=== PATIENT | female | born 2000 | race Two or more races ===

== ENCOUNTER 2021-08-15 20:01 | Emergency (ER) | payer OTHER, MEDICAID ==
[~2021-08-15] VITALS: Ht 165.1 cm; Wt 72.6 kg
[2021-08-15] MEDS ORDERED: traMADol HCL 50 MG TAB PO ONE (21:00)
[2021-08-15 21:47] VITALS: BP 121/55
== END 2021-08-15 21:51 | disposition home or self-care (01) ==
LOC: EDBD 20:01 → ER 20:01
DX: S40.012A Contusion of left shoulder, initial encounter (principal); S80.02XA Contusion of left knee, initial encounter; S20.212A Contusion of left front wall of thorax, initial encounter; F12.10 Cannabis abuse, uncomplicated; V43.52XA Car driver injured in collision with other type car in traffic accident, initial encounter; Y93.89 Activity, other specified; Y92.410 Unspecified street and highway as the place of occurrence of the external cause; Y99.8 Other external cause status
CPT/HCPCS: 71045; 73030; 73562; 93005

== ENCOUNTER 2024-06-17 09:02 | Observation (INO) | payer MEDICAID ==
[~2024-06-17] VITALS: Ht 167.6 cm; Wt 74.8 kg
[2024-06-17] MEDS ORDERED: PREN-96 PO (10:20)
[2024-06-17] MEDS ORDERED: NIFEdipine 10 MG CAP PO ONE (11:00)
[2024-06-17 11:08] LABS: Urine Bacteria FEW /hpf (None Seen); Urine Blood Negative /uL (Negative); Urine Clarity Turbid (Clear); Urine Color Light-Yellow (Yellow); Urine Mucus FEW (None Seen); Urine Protein, UAD Negative (Negative); Urine Specific Gravity 1.017 (1.001-1.035); Urine Urobilinogen Normal (Negative); Urine WBC 8 /hpf (0 - 5)
[2024-06-17 11:10] LABS: Basophils # (auto) 0 10 ^3/uL (0-0.2); Basophils % (auto) 0.2 % (0.0-2.0); Eosinophils # (auto) 0 10 ^3/uL (0-0.8); Eosinophils % (auto) 0.2 % (0.0-7.0); Hematocrit 35.9 % (36.0-46.0); Hemoglobin 12.4 g/dL (12.2-16.2); Lymphocytes # (auto) 1.8 10 ^3/uL (0.4-5.4); Lymphocytes % (auto) 19.2 % (10.0-50.0); Mean Corpuscular Hemoglobin 32.9 pg (28.0-32.0); Mean Corpuscular Hgb Conc. 34.5 g/dL (32.0-36.0); Mean Corpuscular Volume 95.3 fL (80.0-100.0); Monocytes # (auto) 0.3 10 ^3/uL (0-1.3); Monocytes % (auto) 3.7 % (0.0-12.0); Neutrophils % (auto) 76.7 % (37.0-80.0); Red Blood Cells 3.76 10^6/uL (4.0-5.20); Red Cell Distribution Width 12.7 % (11.8-14.3); White Blood Cell 9.2 10^3/uL (4.4-10.8)
[2024-06-17 11:14] LABS: INR 0.96 (0.9-1.15); Partial Thromboplastin Time 26.3 SEC (24.5-34.5); Prothrombin Time 10.2 sec (9.3-11.8)
[2024-06-17 11:15] LABS: Protein, Urine 18.6 mg/dL (0.0-11.9)
[2024-06-17 11:15] LABS: Alanine Aminotransferase 10 U/L (7-40); Albumin 3.9 g/dL (3.2-4.8); Alkaline Phosphatase 77 U/L (46-116); Anion Gap 6 (5-15); Aspartate Aminotransferase 11 U/L (13-40); BUN/Creatinine Ratio 13.2 (10.0-20.0); Bilirubin, Total 0.4 mg/dL (0.2-1.0); Blood Urea Nitrogen 7 mg/dL (9-23); Calcium 9.1 mg/dL (8.7-10.4); Carbon Dioxide 25 mmol/L (20-30); Chloride 106 mmol/L (98-107); Glucose 84 mg/dL (74-106); Potassium 3.5 mmol/L (3.5-5.1); Sodium 137 mmol/L (136-145); Total Protein 6.6 g/dL (5.7-8.2); Uric Acid 3.5 mg/dL (3.1-7.8)
[2024-06-17 11:17] LABS: Amphetamine Screen, Urine Neg (NEGATIVE); Barbiturate Scree,Urine Neg (NEGATIVE); Benzodiazephine Screen, Urine Neg (NEGATIVE); Cocaine Screen, Urine Neg (NEGATIVE)
[2024-06-17 11:18] LABS: Cannabinoid Screen, Urine Pos (NEGATIVE); Creatinine, Urine 66.28 mg/dL (30.0-125.0); Opiate Scree,Urine Neg (NEGATIVE); Phencyclidine Screen, Urine Neg (NEGATIVE); Urine Protein/Creatinine Ratio 0.28
== END 2024-06-17 12:10 | disposition home or self-care (01) ==
LOC: LDRP 09:02 → UNDOADMOB 09:02 → LDRP 09:28
PROVIDERS: ADMIT Obstetrics & Gynecology; ATTEND Obstetrics & Gynecology
DX: O13.2 Gestational [pregnancy-induced] hypertension without significant proteinuria, second trimester (principal); Z3A.28 28 weeks gestation of pregnancy; Z88.0 Allergy status to penicillin; Z79.899 Other long term (current) drug therapy
CPT/HCPCS: 36415; 59025; 80053; 80307; 81001; 81002; 82570; 84156; 84550; 85025; 85610; 85730; 94760; G0378

== ENCOUNTER 2024-06-19 10:20 | Observation (INO) | payer MEDICAID ==
[~2024-06-19 10:20] MED LIST: PREN-96 PO
[2024-06-19 11:54] LABS: Protein, Urine 15.3 mg/dL (0.0-11.9)
== END 2024-06-19 12:24 | disposition home or self-care (01) ==
LOC: LDRP 10:20 → UNDOADMOB 10:20 → LDRP 10:38 → UNDODISOB 12:24
PROVIDERS: ADMIT Obstetrics & Gynecology; ATTEND Obstetrics & Gynecology
DX: O24.419 Gestational diabetes mellitus in pregnancy, unspecified control (principal); O10.913 Unspecified pre-existing hypertension complicating pregnancy, third trimester; Z3A.28 28 weeks gestation of pregnancy; Z88.0 Allergy status to penicillin
CPT/HCPCS: 59025; 81002; 82948; 84156; G0378

== ENCOUNTER 2024-07-02 10:15 | Observation (INO) | payer MEDICAID ==
[~2024-07-02] VITALS: Ht 167.6 cm; Wt 73.9 kg
[2024-07-02 12:02] LABS: Urine Bacteria FEW /hpf (None Seen); Urine Blood Negative /uL (Negative); Urine Clarity Turbid (Clear); Urine Color Yellow (Yellow); Urine Mucus FEW (None Seen); Urine Protein, UAD TRACE (Negative); Urine Specific Gravity 1.021 (1.001-1.035); Urine Urobilinogen Normal (Negative); Urine WBC 19 /hpf (0 - 5); Urine pH 6.5 (5.0-9.0)
[2024-07-02 12:06] LABS: Basophils # (auto) 0 10 ^3/uL (0-0.2); Basophils % (auto) 0.2 % (0.0-2.0); Eosinophils # (auto) 0 10 ^3/uL (0-0.8); Eosinophils % (auto) 0.2 % (0.0-7.0); Hematocrit 37.2 % (36.0-46.0); Hemoglobin 12.6 g/dL (12.2-16.2); Lymphocytes # (auto) 1.3 10 ^3/uL (0.4-5.4); Lymphocytes % (auto) 17.3 % (10.0-50.0); Mean Corpuscular Hemoglobin 32.3 pg (28.0-32.0); Mean Corpuscular Hgb Conc. 33.8 g/dL (32.0-36.0); Mean Corpuscular Volume 95.8 fL (80.0-100.0); Monocytes # (auto) 0.3 10 ^3/uL (0-1.3); Monocytes % (auto) 4.3 % (0.0-12.0); Nucleated Red Blood Cells % 0.1 %; Red Blood Cells 3.89 10^6/uL (4.0-5.20); Red Cell Distribution Width 13.1 % (11.8-14.3); White Blood Cell 7.7 10^3/uL (4.4-10.8)
[2024-07-02 12:13] LABS: Creatinine, Urine 175.99 mg/dL (30.0-125.0); Urine Protein/Creatinine Ratio 0.21
[2024-07-02 12:21] LABS: Alanine Aminotransferase 12 U/L (7-40); Albumin 3.7 g/dL (3.2-4.8); Alkaline Phosphatase 97 U/L (46-116); Anion Gap 4 (5-15); Aspartate Aminotransferase 11 U/L (13-40); BUN/Creatinine Ratio 16.7 (10.0-20.0); Bilirubin, Total 0.3 mg/dL (0.2-1.0); Blood Urea Nitrogen 11 mg/dL (9-23); Carbon Dioxide 25 mmol/L (20-30); Chloride 106 mmol/L (98-107); Glucose 79 mg/dL (74-106); Potassium 3.9 mmol/L (3.5-5.1); Sodium 135 mmol/L (136-145); Total Protein 6.5 g/dL (5.7-8.2); Uric Acid 4.2 mg/dL (3.1-7.8)
[2024-07-02 12:23] LABS: INR 0.93 (0.9-1.15); Partial Thromboplastin Time 25.6 SEC (24.5-34.5); Prothrombin Time 9.9 sec (9.3-11.8)
[2024-07-02] MEDS: NIFEdipine ER 30 MG TAB PO ONE (13:10)
== END 2024-07-02 14:55 | disposition home or self-care (01) ==
LOC: LDRP 10:15 → UNDOADMOB 10:15 → LDRP 10:50
PROVIDERS: ADMIT Obstetrics & Gynecology; ATTEND Obstetrics & Gynecology
DX: O13.3 Gestational [pregnancy-induced] hypertension without significant proteinuria, third trimester (principal); Z3A.30 30 weeks gestation of pregnancy; Z88.0 Allergy status to penicillin
CPT/HCPCS: 36415; 59025; 76818; 80053; 81001; 81002; 82570; 84156; 84550; 85025; 85610; 85730; 94760; G0378

== ENCOUNTER 2024-07-04 10:37 | Observation (INO) | payer MEDICAID ==
[2024-07-04 15:16] LABS: Urine Bacteria None Seen /hpf (None Seen)
[2024-07-04 15:43] LABS: Urine Blood Negative /uL (Negative); Urine Clarity Clear (Clear); Urine Color Light-Yellow (Yellow); Urine Protein, UAD TRACE (Negative); Urine Urobilinogen Normal (Negative); Urine WBC 5 /hpf (0 - 5)
[2024-07-04 16:07] LABS: Protein, Urine 24.2 mg/dL (0.0-11.9)
[2024-07-04 16:09] LABS: Creatinine, Urine 73.58 mg/dL (30.0-125.0); Urine Protein/Creatinine Ratio 0.33
[2024-07-04 16:18] LABS: Protein, Urine 24.2 mg/dL (0.0-11.9)
[2024-07-04 16:19] LABS: 24 Hr. Total Protein, Urine 169.4 mg/24 Hr (<149.1)
[2024-07-04] MEDS ORDERED: NIF10C PO (16:38)
== END 2024-07-04 16:46 | disposition home or self-care (01) ==
LOC: LDRP 14:30
PROVIDERS: ADMIT Obstetrics & Gynecology; ATTEND Obstetrics & Gynecology
DX: O13.3 Gestational [pregnancy-induced] hypertension without significant proteinuria, third trimester (principal); Z3A.30 30 weeks gestation of pregnancy; Z88.0 Allergy status to penicillin
CPT/HCPCS: 59025; 81001; 81002; 82570; 84156; 94760; G0378

== ENCOUNTER 2024-07-06 00:05 | Observation (INO) | payer MEDICAID ==
[~2024-07-06] VITALS: Ht 167.6 cm; Wt 81.6 kg
[~2024-07-06 00:05] MED LIST changes: +NIFE10CA52 PO
[2024-07-06] MEDS: ONDANSETRON HCL 4 MG/2 ML VIAL IV ONE (00:44)
[2024-07-06] MEDS: LACTATED RINGER'S 1,000 ML IV ONE (00:47)
[2024-07-06] MEDS: MAGNESIUM SULFATE 40MG/ML 1,000 ML IV ONE (01:13)
[2024-07-06] MEDS: MAGNESIUM SULFATE 100 ML IV ONE ×2 (01:13→02:04)
[2024-07-06 01:49] LABS: Urine Bacteria None Seen /hpf (None Seen)
[2024-07-06 02:03] LABS: Urine Blood 1+ /uL (Negative); Urine Clarity Clear (Clear); Urine Color Light-Yellow (Yellow); Urine Mucus FEW (None Seen); Urine Protein, UAD Negative (Negative); Urine Specific Gravity 1.019 (1.001-1.035); Urine Urobilinogen Normal (Negative); Urine WBC 2 /hpf (0 - 5)
[2024-07-06 02:07] LABS: INR 0.91 (0.9-1.15); Partial Thromboplastin Time 24.4 SEC (24.5-34.5); Prothrombin Time 9.7 sec (9.3-11.8)
[2024-07-06] MEDS: MAGNESIUM SULFATE 40MG/ML 1,000 ML IV SCH (02:07)
[2024-07-06] MEDS: hydrALAZINE HCL 20 MG/ML VL IV PRN (02:08)
[2024-07-06 02:10] LABS: Alanine Aminotransferase 16 U/L (7-40); Albumin 3.7 g/dL (3.2-4.8); Alkaline Phosphatase 102 U/L (46-116); Anion Gap 10 (5-15); Aspartate Aminotransferase 15 U/L (13-40); BUN/Creatinine Ratio 18.9 (10.0-20.0); Blood Urea Nitrogen 14 mg/dL (9-23); Calcium 9.1 mg/dL (8.7-10.4); Carbon Dioxide 20 mmol/L (20-30); Chloride 107 mmol/L (98-107); Glucose 99 mg/dL (74-106); Potassium 3.9 mmol/L (3.5-5.1); Sodium 137 mmol/L (136-145); Uric Acid 4.7 mg/dL (3.1-7.8)
[2024-07-06 02:11] LABS: Bilirubin, Total 0.3 mg/dL (0.2-1.0); Total Protein 6.3 g/dL (5.7-8.2)
[2024-07-06] MEDS: BETAMETHASONE ACET (30mg/5ml) 5ml Vial 6mg/ml IM ONE (02:12)
[2024-07-06 02:13] LABS: Protein, Urine 20.8 mg/dL (0.0-11.9)
[2024-07-06 02:15] LABS: Amphetamine Screen, Urine Neg (NEGATIVE); Barbiturate Scree,Urine Neg (NEGATIVE); Benzodiazephine Screen, Urine Neg (NEGATIVE); Cannabinoid Screen, Urine Pos (NEGATIVE); Cocaine Screen, Urine Neg (NEGATIVE); Creatinine, Urine 95.86 mg/dL (30.0-125.0); Opiate Scree,Urine Neg (NEGATIVE); Phencyclidine Screen, Urine Neg (NEGATIVE); Urine Protein/Creatinine Ratio 0.22
[2024-07-06 02:46] LABS: Magnesium 4.3 mg/dL (1.6-2.6)
[2024-07-06 02:58] LABS: Fern Testing Negative
[2024-07-06 03:00] LABS: Basophils # (auto) 0 10 ^3/uL (0-0.2); Basophils % (auto) 0.1 % (0.0-2.0); Eosinophils # (auto) 0 10 ^3/uL (0-0.8); Hematocrit 35.5 % (36.0-46.0); Lymphocytes # (auto) 1.2 10 ^3/uL (0.4-5.4); Lymphocytes % (auto) 6.9 % (10.0-50.0); Mean Corpuscular Hemoglobin 31.9 pg (28.0-32.0); Mean Corpuscular Hgb Conc. 33.7 g/dL (32.0-36.0); Mean Corpuscular Volume 94.8 fL (80.0-100.0); Monocytes # (auto) 0.5 10 ^3/uL (0-1.3); Monocytes % (auto) 3.1 % (0.0-12.0); Neutrophils # (auto) 15.9 10 ^3/uL (1.6-8.6); Neutrophils % (auto) 89.9 % (37.0-80.0); Platelet Count (auto) 227 10^3/uL (140-450); Red Blood Cells 3.75 10^6/uL (4.0-5.20); Red Cell Distribution Width 12.5 % (11.8-14.3); White Blood Cell 17.6 10^3/uL (4.4-10.8)
[2024-07-06 04:22] LABS: COVID19 ANTIGEN SOFIA FIA NEGATIVE (NEGATIVE)
[2024-07-06] MEDS: LACTATED RINGER'S 1,000 ML IV SCH (05:30)
== END 2024-07-06 09:08 | disposition home or self-care (01) ==
LOC: LDRP 00:05
PROVIDERS: ADMIT Obstetrics & Gynecology; ATTEND Obstetrics & Gynecology
DX: O21.2 Late vomiting of pregnancy (principal); O60.03 Preterm labor without delivery, third trimester; O13.3 Gestational [pregnancy-induced] hypertension without significant proteinuria, third trimester; Z3A.30 30 weeks gestation of pregnancy; Z79.899 Other long term (current) drug therapy; Z98.890 Other specified postprocedural states; Z20.822 Contact with and (suspected) exposure to COVID-19
CPT/HCPCS: 36415; 59025; 76705; 76805; 80053; 80307; 81001; 81002; 82570; 83735; 84112; 84156; 84550; 85025; 85610; 85730; 87426; 94762; 96361; 96365; 96366; 96372; 96375; G0378; J0702; J2405; J3475; Q0114; 96360; 96374

== ENCOUNTER 2024-07-06 22:03 | Observation (INO) | payer MEDICAID ==
[~2024-07-06] VITALS: Ht 167.6 cm; Wt 81.6 kg
[~2024-07-06 22:03] MED LIST changes: +NIF10C PO; -NIFE10CA52 PO
[2024-07-06] MEDS: BETAMETHASONE ACET (30mg/5ml) 5ml Vial 6mg/ml IM ONE (22:34)
== END 2024-07-06 23:30 | disposition home or self-care (01) ==
LOC: LDRP 22:03
PROVIDERS: ADMIT Obstetrics & Gynecology; ATTEND Obstetrics & Gynecology
DX: O13.3 Gestational [pregnancy-induced] hypertension without significant proteinuria, third trimester (principal); Z3A.30 30 weeks gestation of pregnancy; Z88.0 Allergy status to penicillin; Z87.891 Personal history of nicotine dependence
CPT/HCPCS: 59025; 81002; 94760; 96372; G0378; J0702

== ENCOUNTER 2024-07-08 14:40 | Observation (INO) | payer MEDICAID ==
[~2024-07-08] VITALS: Ht 167.6 cm; Wt 81.6 kg
[2024-07-08] MEDS: NIFEdipine 10 MG CAP PO ONE (16:17)
[2024-07-08] MEDS ORDERED: hydrALAZINE HCL 20 MG/ML VL IV PRN (17:45)
== END 2024-07-08 18:31 | disposition home or self-care (01) ==
LOC: LDRP 14:40
PROVIDERS: ADMIT Obstetrics & Gynecology; ATTEND Obstetrics & Gynecology
DX: O60.03 Preterm labor without delivery, third trimester (principal); O26.893 Other specified pregnancy related conditions, third trimester; R51.9 Headache, unspecified; O99.343 Other mental disorders complicating pregnancy, third trimester; F41.9 Anxiety disorder, unspecified; Z3A.31 31 weeks gestation of pregnancy
CPT/HCPCS: 59025; 81002; 94760; G0378

== ENCOUNTER 2024-07-11 09:23 | Observation (INO) | payer MEDICAID ==
[~2024-07-11] VITALS: Ht 165.1 cm; Wt 93.9 kg
== END 2024-07-11 10:26 | disposition home or self-care (01) ==
LOC: LDRP 09:23
PROVIDERS: ADMIT Obstetrics & Gynecology; ATTEND Obstetrics & Gynecology
DX: O13.3 Gestational [pregnancy-induced] hypertension without significant proteinuria, third trimester (principal); Z3A.31 31 weeks gestation of pregnancy; Z88.0 Allergy status to penicillin; Z87.891 Personal history of nicotine dependence
CPT/HCPCS: 59025; 81002; 94760; G0378

== ENCOUNTER 2024-07-15 12:30 | Observation (INO) | payer MEDICAID ==
[~2024-07-15] VITALS: Ht 30.5 cm; Wt 0.5 kg
[~2024-07-15 12:30] MED LIST changes: -NIF10C PO; +NIFE10CA52 PO
[2024-07-15 14:28] LABS: Basophils # (auto) 0 10 ^3/uL (0-0.2); Basophils % (auto) 0.4 % (0.0-2.0); Eosinophils # (auto) 0 10 ^3/uL (0-0.8); Eosinophils % (auto) 0.4 % (0.0-7.0); Hematocrit 34.7 % (36.0-46.0); Hemoglobin 11.7 g/dL (12.2-16.2); Lymphocytes # (auto) 2.1 10 ^3/uL (0.4-5.4); Lymphocytes % (auto) 22.3 % (10.0-50.0); Mean Corpuscular Hemoglobin 32.1 pg (28.0-32.0); Mean Corpuscular Hgb Conc. 33.6 g/dL (32.0-36.0); Mean Corpuscular Volume 95.4 fL (80.0-100.0); Monocytes # (auto) 0.6 10 ^3/uL (0-1.3); Neutrophils # (auto) 6.6 10 ^3/uL (1.6-8.6); Neutrophils % (auto) 70.9 % (37.0-80.0); Red Blood Cells 3.64 10^6/uL (4.0-5.20); Red Cell Distribution Width 12.7 % (11.8-14.3); White Blood Cell 9.3 10^3/uL (4.4-10.8)
[2024-07-15] MEDS: hydrALAZINE HCL 20 MG/ML VL IV PRN (14:42)
[2024-07-15 14:45] LABS: INR 0.93 (0.9-1.15); Partial Thromboplastin Time 26.1 SEC (24.5-34.5); Prothrombin Time 9.9 sec (9.3-11.8)
[2024-07-15 14:49] LABS: Alanine Aminotransferase 11 U/L (7-40); Albumin 3.6 g/dL (3.2-4.8); Alkaline Phosphatase 97 U/L (46-116); Anion Gap 7 (5-15); Aspartate Aminotransferase 11 U/L (13-40); Blood Urea Nitrogen 12 mg/dL (9-23); Calcium 8.8 mg/dL (8.7-10.4); Carbon Dioxide 24 mmol/L (20-30); Chloride 106 mmol/L (98-107); Glucose 93 mg/dL (74-106); Potassium 3.9 mmol/L (3.5-5.1); Sodium 137 mmol/L (136-145); Uric Acid 4.9 mg/dL (3.1-7.8)
[2024-07-15 14:50] LABS: Bilirubin, Total 0.2 mg/dL (0.2-1.0); Total Protein 6.2 g/dL (5.7-8.2)
[2024-07-15] MEDS: NIFEdipine ER 30 MG TAB PO ONE (14:55)
[2024-07-15 15:09] LABS: Urine Bacteria FEW /hpf (None Seen); Urine Blood Negative /uL (Negative); Urine Clarity Turbid (Clear); Urine Color Light-Yellow (Yellow); Urine Protein, UAD TRACE (Negative); Urine Specific Gravity 1.021 (1.001-1.035); Urine Urobilinogen Normal (Negative); Urine WBC 5 /hpf (0 - 5)
[2024-07-15 15:12] LABS: Protein, Urine 23.2 mg/dL (0.0-11.9)
[2024-07-15 15:15] LABS: Creatinine, Urine 100.37 mg/dL (30.0-125.0); Urine Protein/Creatinine Ratio 0.23
[2024-07-15] MEDS ORDERED: ALPRAZolam 0.5 MG TAB PO ONE (17:00)
[2024-07-15 17:07] LABS: Amphetamine Screen, Urine Neg (NEGATIVE); Barbiturate Scree,Urine Neg (NEGATIVE); Benzodiazephine Screen, Urine Neg (NEGATIVE); Cannabinoid Screen, Urine Pos (NEGATIVE); Cocaine Screen, Urine Neg (NEGATIVE); Opiate Scree,Urine Neg (NEGATIVE); Phencyclidine Screen, Urine Neg (NEGATIVE)
== END 2024-07-15 18:10 | disposition left against medical advice (07) ==
LOC: LDRP 12:30 → UNDOADMOB 12:30 → LDRP 13:05
PROVIDERS: ADMIT Obstetrics & Gynecology; ATTEND Obstetrics & Gynecology
DX: O13.3 Gestational [pregnancy-induced] hypertension without significant proteinuria, third trimester (principal); O26.893 Other specified pregnancy related conditions, third trimester; R51.9 Headache, unspecified; Z3A.32 32 weeks gestation of pregnancy; Z79.899 Other long term (current) drug therapy
CPT/HCPCS: 36415; 59025; 76805; 76818; 80053; 80307; 81001; 81002; 82570; 84156; 84550; 85025; 85610; 85730; 94760; 96374; 96376; G0378; J0360; 96375

== ENCOUNTER 2024-07-18 12:00 | Inpatient (IN) | payer MEDICAID ==
[~2024-07-18] VITALS: Ht 162.6 cm; Wt 77.1 kg
[2024-07-18 13:28] LABS: Basophils # (auto) 0 10 ^3/uL (0-0.2); Basophils % (auto) 0.4 % (0.0-2.0); Eosinophils # (auto) 0 10 ^3/uL (0-0.8); Eosinophils % (auto) 0.2 % (0.0-7.0); Hematocrit 34.9 % (36.0-46.0); Hemoglobin 11.9 g/dL (12.2-16.2); Lymphocytes # (auto) 1.9 10 ^3/uL (0.4-5.4); Lymphocytes % (auto) 19.9 % (10.0-50.0); Mean Corpuscular Hemoglobin 32.9 pg (28.0-32.0); Mean Corpuscular Hgb Conc. 34.2 g/dL (32.0-36.0); Mean Corpuscular Volume 96.4 fL (80.0-100.0); Monocytes # (auto) 0.4 10 ^3/uL (0-1.3); Monocytes % (auto) 4.3 % (0.0-12.0); Neutrophils % (auto) 75.2 % (37.0-80.0); Platelet Count (auto) 217 10^3/uL (140-450); Red Blood Cells 3.62 10^6/uL (4.0-5.20); Red Cell Distribution Width 12.9 % (11.8-14.3); White Blood Cell 9.3 10^3/uL (4.4-10.8)
[2024-07-18] MEDS: hydrALAZINE HCL 20 MG/ML VL IV PRN (13:30)
[2024-07-18 13:34] LABS: Urine Bacteria FEW /hpf (None Seen); Urine Blood Negative /uL (Negative); Urine Clarity Turbid (Clear); Urine Color Light-Yellow (Yellow); Urine Hyaline Cast FEW /lpf (0 - 2); Urine Protein, UAD Negative (Negative); Urine Specific Gravity 1.008 (1.001-1.035); Urine Urobilinogen Normal (Negative); Urine WBC 9 /hpf (0 - 5); Urine pH 6.5 (5.0-9.0)
[2024-07-18 13:42] LABS: Protein, Urine 10.8 mg/dL (0.0-11.9)
[2024-07-18 13:43] LABS: INR 0.91 (0.9-1.15); Partial Thromboplastin Time 25.4 SEC (24.5-34.5); Prothrombin Time 9.7 sec (9.3-11.8)
[2024-07-18 13:45] LABS: Amphetamine Screen, Urine Neg (NEGATIVE); Barbiturate Scree,Urine Neg (NEGATIVE); Benzodiazephine Screen, Urine Neg (NEGATIVE); Cannabinoid Screen, Urine Pos (NEGATIVE); Cocaine Screen, Urine Neg (NEGATIVE); Creatinine, Urine 39.02 mg/dL (30.0-125.0); Opiate Scree,Urine Neg (NEGATIVE); Phencyclidine Screen, Urine Neg (NEGATIVE); Urine Protein/Creatinine Ratio 0.28
[2024-07-18 13:48] LABS: Alanine Aminotransferase 10 U/L (7-40); Alkaline Phosphatase 109 U/L (46-116); Anion Gap 6 (5-15); Aspartate Aminotransferase 12 U/L (13-40); BUN/Creatinine Ratio 20.4 (10.0-20.0); Bilirubin, Total 0.2 mg/dL (0.2-1.0); Blood Urea Nitrogen 11 mg/dL (9-23); Carbon Dioxide 23 mmol/L (20-30); Chloride 106 mmol/L (98-107); Glucose 80 mg/dL (74-106); Potassium 4.2 mmol/L (3.5-5.1); Sodium 135 mmol/L (136-145); Total Protein 6.7 g/dL (5.7-8.2)
[2024-07-18] MEDS ORDERED: LORazepam 2MG/ML-1ML VIAL IV ONE (14:00)
[2024-07-18] MEDS: LACTATED RINGER'S 1,000 ML IV SCH (14:23)
[2024-07-18] MEDS: MAGNESIUM SULFATE 100 ML IV ONE (14:29)
[2024-07-18] MEDS: MAGNESIUM SULFATE 40MG/ML 1,000 ML IV SCH (14:45)
== END 2024-07-18 15:35 | disposition short-term general hospital (02) | DRG 566 ==
LOC: LDRP 12:00 → OBSVTOIN 13:56
PROVIDERS: ADMIT Obstetrics & Gynecology; ATTEND Obstetrics & Gynecology
DX: O10.913 Unspecified pre-existing hypertension complicating pregnancy, third trimester (principal); O99.323 Drug use complicating pregnancy, third trimester; F19.90 Other psychoactive substance use, unspecified, uncomplicated; Z91.199 Patient's noncompliance with other medical treatment and regimen due to unspecified reason; Z3A.32 32 weeks gestation of pregnancy; Z91.148 Patient's other noncompliance with medication regimen for other reason
CPT/HCPCS: 36415; 59025; 76818; 80053; 80307; 81001; 81002; 82570; 83735; 84156; 84550; 85025; 85610; 85730; 94760; 96360; 96361; 96365; 96366; 96374; G0378

== ENCOUNTER 2024-09-03 23:58 | Emergency (ER) | payer MEDICAID ==
[~2024-09-03] VITALS: Ht 167.6 cm; Wt 76.0 kg
[2024-09-04 00:07] VITALS: BP 116/86; PULSE 93; RESP 20; O2SAT 97
[2024-09-04 00:30] LABS: Urine Bacteria None Seen /hpf (None Seen)
[2024-09-04 00:33] LABS: Basophils # (auto) 0 10 ^3/uL (0-0.2); Basophils % (auto) 0.6 % (0.0-2.0); Eosinophils # (auto) 0.1 10 ^3/uL (0-0.8); Eosinophils % (auto) 1.5 % (0.0-7.0); Hematocrit 33.6 % (36.0-46.0); Hemoglobin 11.6 g/dL (12.2-16.2); Lymphocytes # (auto) 2.5 10 ^3/uL (0.4-5.4); Lymphocytes % (auto) 28.1 % (10.0-50.0); Mean Corpuscular Hemoglobin 32.9 pg (28.0-32.0); Mean Corpuscular Hgb Conc. 34.5 g/dL (32.0-36.0); Mean Corpuscular Volume 95.4 fL (80.0-100.0); Monocytes # (auto) 0.5 10 ^3/uL (0-1.3); Monocytes % (auto) 5.8 % (0.0-12.0); Neutrophils # (auto) 5.6 10 ^3/uL (1.6-8.6); Platelet Count (auto) 280 10^3/uL (140-450); Red Blood Cells 3.52 10^6/uL (4.0-5.20); Red Cell Distribution Width 12.6 % (11.8-14.3); White Blood Cell 8.7 10^3/uL (4.4-10.8)
[2024-09-04 00:43] LABS: Chloride 109 mmol/L (98-107); Potassium 3.9 mmol/L (3.5-5.1); Sodium 141 mmol/L (136-145)
[2024-09-04 00:44] LABS: Anion Gap 7 (5-15); Carbon Dioxide 25 mmol/L (20-31)
[2024-09-04 00:45] LABS: Calcium 9.6 mg/dL (8.7-10.4)
[2024-09-04 00:49] LABS: Blood Urea Nitrogen 24 mg/dL (9-23); Glucose 100 mg/dL (74-106)
[2024-09-04 00:50] LABS: INR 0.99 (0.9-1.15); Partial Thromboplastin Time 26.8 SEC (24.5-34.5); Prothrombin Time 10.5 sec (9.3-11.8)
[2024-09-04 01:06] LABS: Urine Blood 3+ /uL (Negative); Urine Clarity Clear (Clear); Urine Color Yellow (Yellow); Urine Mucus FEW (None Seen); Urine Protein, UAD TRACE (Negative); Urine Specific Gravity 1.033 (1.001-1.035); Urine Urobilinogen Normal (Negative); Urine WBC 7 /hpf (0 - 5)
== END 2024-09-04 02:45 | disposition home or self-care (01) ==
LOC: ER 09-04 00:01
DX: O20.8 Other hemorrhage in early pregnancy (principal); R10.2 Pelvic and perineal pain; F12.10 Cannabis abuse, uncomplicated; I10 Essential (primary) hypertension; Z88.0 Allergy status to penicillin; Z3A.01 Less than 8 weeks gestation of pregnancy
CPT/HCPCS: 36415; 76856; 80048; 81001; 84702; 85025; 85610; 85730

== ENCOUNTER 2025-05-29 18:36 | Emergency (ER) | payer MEDICAID ==
[~2025-05-29] VITALS: Ht 165.1 cm; Wt 81.0 kg
[2025-05-29 18:49] VITALS: BP 118/80; PULSE 117; RESP 18; TEMP 98.3; O2SAT 100
--- NOTE | 2025-05-29 18:56 | ED.PDOC ---
History of Present Illness HPI Comments 24-year-old female brought in by EMS from home with alcohol intoxication. Reports the patient has been drinking alcohol all day. Patient states she drank Tequila, but will not comment on how much she drank. Patient states family members became concerned that her blood pressure was high, so called EMS. Patient states she initially did not want hospital evaluation, so was involved in a slight altercation, stating family members were trying to restrain her. Patient eventually conceded to transport. Patient denies being suicidal or homicidal. Denies any auditory or visual hallucinations. Blood pressure on scene was 175/116 mmHg. Patient states she has a history of preeclampsia, and has had high blood pressure ever since giving . She states she is not on any blood pressure medications. 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 Allergies: Coded Allergies: Penicillins (Verified Allergy, Unknown, 08/15/21) Home Meds Reported Medications Nifedipine (PROCARDIA CAPSULE) 10 Mg Cp, 30 MG PO DAILY, CAP 07/04/24 Vit W/ Ferrous Fumara ( One Daily) Daily Tab, 1 TAB PO DAILY, #90 TAB 3 Refills 06/17/24 Information Source: Patient, Emergency Med Personnel Mode of Arrival: EMS Severity: Moderate Timing: Hours Duration: Since onset Past Medical History PAST MEDICAL HISTORY: HTN Surgical History: [employer] History: Other (Preeclampsia) Family History Family History: Family hx of Cancer, Family hx of Kidney geri Social History Smoker: Other (Vape) Alcohol: Occasionally Drugs: Marijuana Lives In: Home Constitutional: denies: chills, diaphoresis, fatigue, fever, malaise, sweats, weakness, others EENTM: denies: blurred vision, double vision, ear bleeding, ear discharge, ear drainage, ear pain, ear ringing, eye pain, eye redness, hearing loss, mouth pain, mouth swelling, nasal discharge, nose bleeding, nose congestion, nose pain, photophobia, tearing, throat pain, throat swelling, voice changes, others Respiratory: denies: cough, hemoptysis, orthopnea, SOB at rest, shortness of breath, SOB with excertion, stridor, wheezing, others Cardiovascular: denies: chest pain, dizzy spells, diaphoresis, Dyspnea on exertion, edema, irregular heart beat, left arm pain, lightheadedness, palpitations, PND, syncope, others Gastrointestinal: denies: abdomen distended, abdominal pain, blood streaked bowels, constipated, diarrhea, dysphagia, difficulty swallowing, hematemesis, melena, nausea, poor appetite, poor fluid intake, rectal bleeding, rectal pain, vomiting, others Genitourinary: denies: abnormal vagina bleeding, burning, dyspareunia, dysuria, flank pain, frequency, hematuria, incontinence, pain, , vagina discharge, urgency, others Neurological: denies: dizziness, fainting, headache, left sided numbness, left sided weakness, numbness, paresthesia, pre-existing deficit, right sided numbness, right sided weakness, seizure, speech problems, tingling, tremors, weakness, others Musculoskeletal: denies: back pain, gout, joint pain, joint swelling, muscle pain, muscle stiffness, neck pain, others Integumetry: denies: bruises, change in color, change in hair/nails, dryness, laceration, lesions, lumps, rash, wounds, others Allergic/Immunocompromised: denies: Difficulty Healing, Frequent Infections, Hives, Itching, others Hematologic/Lymphatic: denies: anemia, blood clots, easy bleeding, easy bruising, swollen glands, others Endocrine: denies: excessive hunger, excessive sweating, excessive thirst, excessive urination, flushing, intolerance to cold, intolerance to heat, unexplained weight gain, unexplained weight loss, others Psychiatric: reports: others (alcohol intoxication); denies: anxiety, bipolar disorder, depression, hopeless, panic disorder, schizophrenia, sleepless, suicidal Physical Exam General Appearance: No Apparent Distress HEENT: Other (Pupils and face symmetric. Moist mucous membranes.) Neck: Full Range of Motion, Normal Inspection Respiratory: Lungs Clear, No Accessory Muscle Use, No Respiratory Distress, Normal Breath Sounds Cardiovascular: No Edema, No JVD, Tachycardia Breast Exam: Deferred Gastrointestinal: Non Tender, Soft Genitalia: Deferred Pelvic: Deferred Rectal: Deferred Extremities: Normal inspection, Normal range of motion, Non-tender, No pedal edema Neurologic: Alert (Oriented x4), Normal Affect, Normal Mood, Other (Ambulatory) Cerebellar Function: NOT DONE Reflexes: NOT DONE Skin: Dry, Normal Color, Warm, Other (Superficial excoriations anterior neck) Lymphatic: NOT DONE Was a procedure done? Was a procedure done?: No Differential Dx Considerations may include: alcohol intoxication, drug intoxication, anxiety, depression, hypertension, among others X-Ray, Labs, Meds, VS Vital Signs Date Time Temp Pulse Resp B/P (MAP) Pulse Ox O2 Delivery O2 Flow Rate FiO2 05/29/25 19:30 Room Air* 0 21 05/29/25 18:49 98.3 117 18 118/80 (93) 100 98.3 Lab Test 05/29/25 19:10 05/29/25 18:50 Range/Units White Blood Count 8.5 4.4-10.8 10^3/uL Red Blood Count 4.74 4.0-5.20 10^6/uL Hemoglobin 14.8 12.2-16.2 g/dL Hematocrit 43.7 36.0-46.0 % Mean Corpuscular Volume 92.3 80.0-100.0 fL Mean Corpuscular Hemoglobin 31.3 28.0-32.0 pg Mean Corpuscular Hemoglobin Concent 33.9 32.0-36.0 g/dL Red Cell Distribution Width 13.7 11.8-14.3 % Platelet Count 304 140-450 10^3/uL Mean Platelet Volume 9.5 6.9-10.8 fL Neutrophils (%) (Auto) 71.6 37.0-80.0 % Lymphocytes (%) (Auto) 23.0 10.0-50.0 % Monocytes (%) (Auto) 4.4 0.0-12.0 % Eosinophils (%) (Auto) 0.6 0.0-7.0 % Basophils (%) (Auto) 0.4 0.0-2.0 % Neutrophils # (Auto) 6.1 1.6-8.6 10 ^3/uL Lymphocytes # (Auto) 2.0 0.4-5.4 10 ^3/uL Monocytes # (Auto) 0.4 0-1.3 10 ^3/uL Eosinophils # (Auto) 0 0-0.8 10 ^3/uL Basophils # (Auto) 0 0-0.2 10 ^3/uL Nucleated Red Blood Cells 0.0 % Sodium Level 144 136-145 mmol/L Potassium Level 3.6 3.5-5.1 mmol/L Chloride Level 110 H 98-107 mmol/L Carbon Dioxide Level 19 L 20-31 mmol/L Anion Gap 15 5-15 Blood Urea Nitrogen 14 9-23 mg/dL Creatinine 0.77 0.550-1.02 mg/dL Glomerular Filtration Rate Calc 109 >90 mL/min BUN/Creatinine Ratio 18.2 10.0-20.0 Serum Glucose 102 74-106 mg/dL Calcium Level 10.3 8.7-10.4 mg/dL Plasma/Serum Blood Alcohol 268.7 H <10 mg/dL Urine Color Light-yellow Yellow Urine Clarity Clear Clear Urine pH 5.5 5.0-9.0 Urine Specific [place] 1.004 1.001-1.035 Urine Protein Negative Negative Urine Ketones Negative Negative Urine Blood Negative Negative /uL Urine Nitrite Negative Negative Urine Bilirubin Negative Negative Urine Urobilinogen Normal Negative mg/dL Urine Leukocyte Esterase Negative Negative /uL Urine RBC <1 0 - 4 /hpf Urine Microscopic WBC 1 0-5 /HPF Urine Squamous Epithelial Cells Few <5 /hpf Urine Bacteria Few H None Seen /hpf Urine Glucose Normal Normal mg/dL Urine Opiates Screen Neg NEGATIVE Urine Fentanyl Screen Neg NEGATIVE Urine Barbiturates Screen Neg NEGATIVE Urine Phencyclidine Screen Neg NEGATIVE Urine Amphetamines Screen Neg NEGATIVE Urine Benzodiazepines Screen Neg NEGATIVE Urine Cocaine Screen Neg NEGATIVE Urine Cannabinoids Screen Pos NEGATIVE Current Medications Medications (Trade) Dose Ordered Sig/Tyrel Route Start Time Stop Time Status Last Admin Sodium Chloride 1,000 ml @ 1,000 mls/hr Q1H ONCE IV 05/29/25 19:00 05/29/25 19:59 DC 05/29/25 19:05 X-Ray, Labs, Meds, VS Comment 24-year-old female with a history of preeclampsia and hypertension brought in by EMS from home with alcohol intoxication Vitals remarkable for heart rate 117 Exam remarkable for tachycardia Rhythm strip independently interpreted by me: Sinus tach, rate 117, no ectopy. CBC, basic metabolic panel, urine drug screen, UA and urine tests unremarkable. Serum alcohol 268.7 Patient treated with the following in the ED: 1 L 0.9 normal saline IV bolus On re-evaluation, patient is resting comfortably with stable vitals. Patient appears stable for discharge pending sobriety. Significant other arrived to pick her up, so patient was set for discharge. Apparently patient had an argument with her significant other and told him to leave. Patient then ripped out her IV and left the ED. Time of 1ST Reevaluation: 18:46 Reevaluation 1ST: Unchanged Patient Education/Counseling: Diagnosis, Treatment Family Education/Counseling: No Family Present SEPSIS Sepsis Screen Physician Orders Urine (05/29/25 ) Vital Signs Date Time Temp Pulse Resp B/P (MAP) Pulse Ox O2 Delivery O2 Flow Rate FiO2 05/29/25 19:30 Room Air* 0 21 05/29/25 18:49 98.3 117 18 118/80 (93) 100 98.3 Laboratory Tests Test 05/29/25 19:10 White Blood Count 8.5 10^3/uL (4.4-10.8) Medications Medications Dose Ordered Sig/Tyrle Route Start Time Stop Time Status Last Admin Dose Admin Sodium Chloride 1,000 ml @ 1,000 mls/hr Q1H ONCE IV 05/29/25 19:00 05/29/25 19:59 DC 05/29/25 19:05 Departure 1 Departure Time of Disposition: 19:18 Impression: Primary Impression: Alcohol intoxication Qualified Codes: F10.929 - Alcohol use, unspecified with intoxication, unspecified Disposition: 01 HOME / SELF CARE / HOMELESS Condition: Stable Written Prescriptions Your blood and urine tests were unremarkable except for an elevated alcohol level. Follow-up with your primary doctor in 1-2 days. Discharged With: Relative Critical Care Note Critical Care Time?: No Stability Stability form required: No Heart Score Heart Score: Heart Score Response (Comments) Value History N/A 0 EKG N/A 0 Age N/A 0 Risk Factors N/A 0 Troponin N/A 0 Total 0 I personally scribed for ZION CAAL MD ([facility]) on 05/29/25 at 18:56. Electronically submitted by Jun Robledo ([facility]). ZION CAAL MD May 29, 2025 18:56
[2025-05-29] MEDS: SODIUM CHLORIDE 0.9% 1,000 ML IV ONE (19:05)
[2025-05-29 19:22] LABS: Basophils # (auto) 0 10 ^3/uL (0-0.2); Basophils % (auto) 0.4 % (0.0-2.0); Eosinophils # (auto) 0 10 ^3/uL (0-0.8); Eosinophils % (auto) 0.6 % (0.0-7.0); Hematocrit 43.7 % (36.0-46.0); Hemoglobin 14.8 g/dL (12.2-16.2); Mean Corpuscular Hemoglobin 31.3 pg (28.0-32.0); Mean Corpuscular Hgb Conc. 33.9 g/dL (32.0-36.0); Mean Corpuscular Volume 92.3 fL (80.0-100.0); Monocytes # (auto) 0.4 10 ^3/uL (0-1.3); Monocytes % (auto) 4.4 % (0.0-12.0); Neutrophils # (auto) 6.1 10 ^3/uL (1.6-8.6); Neutrophils % (auto) 71.6 % (37.0-80.0); Platelet Count (auto) 304 10^3/uL (140-450); Red Blood Cells 4.74 10^6/uL (4.0-5.20); Red Cell Distribution Width 13.7 % (11.8-14.3); White Blood Cell 8.5 10^3/uL (4.4-10.8)
[2025-05-29 19:22] LABS: Urine Bacteria FEW /hpf (None Seen); Urine Blood Negative /uL (Negative); Urine Clarity Clear (Clear); Urine Protein, UAD Negative (Negative); Urine Specific Gravity 1.004 (1.001-1.035); Urine Squamous Epithelial Cell FEW /hpf (<5); Urine Urobilinogen Normal (Negative); Urine WBC 1 /HPF (0-5); Urine pH 5.5 (5.0-9.0)
[2025-05-29 19:23] LABS: Urine Color Light-Yellow (Yellow)
[2025-05-29 19:29] LABS: Potassium 3.6 mmol/L (3.5-5.1); Sodium 144 mmol/L (136-145)
[2025-05-29 19:30] LABS: Anion Gap 15 (5-15)
[2025-05-29 19:31] LABS: Calcium 10.3 mg/dL (8.7-10.4)
[2025-05-29 19:35] LABS: Glucose 102 mg/dL (74-106)
[2025-05-29 19:36] LABS: BUN/Creatinine Ratio 18.2 (10.0-20.0); Blood Alcohol 268.7 mg/dL (<10); Blood Urea Nitrogen 14 mg/dL (9-23)
[2025-05-29 19:39] LABS: Amphetamine Screen, Urine Neg (NEGATIVE); Barbiturate Scree,Urine Neg (NEGATIVE); Benzodiazephine Screen, Urine Neg (NEGATIVE); Cannabinoid Screen, Urine Pos (NEGATIVE); Cocaine Screen, Urine Neg (NEGATIVE); Opiate Scree,Urine Neg (NEGATIVE); Phencyclidine Screen, Urine Neg (NEGATIVE)
[2025-05-29 19:39] LABS: Carbon Dioxide 19 mmol/L (20-31); Chloride 110 mmol/L (98-107)
== END 2025-05-29 19:58 | disposition home or self-care (01) ==
LOC: ER 18:36 → EDBD 18:36 → ER 19:58
DX: F10.929 Alcohol use, unspecified with intoxication, unspecified (principal); I10 Essential (primary) hypertension; F17.290 Nicotine dependence, other tobacco product, uncomplicated; F12.90 Cannabis use, unspecified, uncomplicated; Z88.0 Allergy status to penicillin; Z87.59 Personal history of other complications of pregnancy, childbirth and the puerperium; Z79.899 Other long term (current) drug therapy; Z98.890 Other specified postprocedural states; Y90.8 Blood alcohol level of 240 mg/100 ml or more
CPT/HCPCS: 36415; 80048; 80307; 80320; 81001; 85025; 96360; 99283; J7030